=== PATIENT | male | born 1965 | race Caucasian/White ===

== ENCOUNTER 2020-10-12 19:36 | Emergency (ER) | payer OTHER ==
[~2020-10-12] VITALS: Ht 182.9 cm; Wt 102.1 kg
--- NOTE | 2020-10-12 20:33 | ED Upper Extremity ---
General Chief Complaint: Laceration Stated Complaint: L ARM LAC Nursing Triage Note: PT AMBULATE TO ROOM 02 WITH C/O LAC TO OUTSIDE LEFT WRIST. PT STATES HE WAS CUTTING A PIECE OF WOOD AND CUT ARM. Source: patient, other Exam Limitations: no limitations History of Present Illness Date Seen by Provider: Oct 12, 2020 Time Seen by Provider: 20:19 Initial Comments Patient to the ER by private conveyance from home with chief complaint that wi thin the last few minutes he was using a trim saw and cut the top of his left hand. He is right-hand dominant. No loss of range of motion or feeling. He put direct pressure on it stop the bleeding on his way and. He has had a tetanus vaccine in the last 5 years. Allergies and Home Medications Allergies Coded Allergies: Penicillins (Verified Allergy, Unknown, 10/12/20) Patient Home Medication List Home Medication List Reviewed: Yes Review of Systems Constitutional: No chills, No diaphoresis EENTM: No ear discharge, No ear pain Respiratory: No cough, No short of breath Cardiovascular: No chest pain, No Hx of Intervention, No palpitations Gastrointestinal: No abdominal pain, No nausea, No vomiting Genitourinary: No discharge, No dysuria Musculoskeletal: No back pain, No joint pain All Other Systems Reviewed Negative Unless Noted: Yes Past Dkvpydk-Xfzcuk-Asajrj Hx Patient Social History Tobacco Use?: No Substance use?: No Substance frequency: Couple times a week Alcohol Use?: Yes Alcohol type: Beer Alcohol Frequency: Couple times a week Pt feels they are or have been: No Physical Exam Vital Signs Vital Signs - First Documented 10/12/20 19:44 Temp 36.6 Pulse 70 Resp 19 B/P (MAP) 117/73 (88) O2 Delivery Room Air Capillary Refill : Less Than 3 Seconds Height, Weight, BMI Height: '" Weight: lbs. oz. kg; 30.00 BMI Method: General Appearance: WD/WN, mild distress HEENT: PERRL/EOMI, normal ENT inspection, pharynx normal Neck: full range of motion, normal inspection Cardiovascular: normal peripheral pulses, regular rate, rhythm Respiratory: lungs clear, normal breath sounds, no respiratory distress, no accessory muscle use Shoulder: normal inspection, non-tender, no evidence of injury, normal ROM Elbow/Forearm: normal inspection, non-tender, no evidence of injury, normal ROM, Left Hand: laceration (5 cm linear ragged laceration on the dorsum of the left hand or third fourth and fifth metacarpals) Neurologic/Tendon: normal sensation, normal motor functions, normal tendon functions, responds to pain, no evidence tendon injury Neurologic/Psychiatric: no motor/sensory deficits, alert, normal mood/affect, oriented x 3 Skin: normal color, warm/dry Procedures/Interventions Wound Location: Upper Extremities Other Wound Location Dorsal left hand Wound Length (cm): 5 Wound's Depth, Shape: linear (Ragged), sub Q Wound Explored: no foreign body removed Irrigated w/ Saline (ccs): 200 Betadine Prep?: Yes (Chlorhexidine and alcohol) Anesthesia: 1% Lidocaine Volume Anesthetic (ccs): 5 Suture: Prolene Suture Size: 4-0 Number of Sutures: 7 Layer Closure?: 1 Sterile Dressing Applied?: Yes Progress Skin edges were reapproximated with 7 simple interrupted sutures. Progress/Results/Core Measures Results/Orders My Orders Orders - GERALD TRIANA Hand, Left, 3 Views (10/12/20 20:32) Lidocaine 1% Inj 20 Ml (Xylocaine 1% Inj (10/12/20 20:45) Vital Signs/I&O 10/12/20 19:44 Temp 36.6 Pulse 70 Resp 19 B/P (MAP) 117/73 (88) O2 Delivery Room Air Blood Pressure Mean: 88 Diagnostic Imaging Diagonstic Imaging: Xray Plain Films/CT/US/NM/MRI: hand (Left 3 view) Comments NAME: [facility] REC#: [id number] PT STATUS: REG ER : 1965 PHYSICIAN: GERALD TRIANA MD ADMIT DATE: 10/12/20/ER Signed Date of Exam:10/12/20 HAND, LEFT, 3 VIEWS CLINICAL HISTORY: Left hand pain. COMPARISON: None. TECHNIQUE: 3 views of the left hand. FINDINGS: There is no acute fracture or dislocation of the left hand. Likely old avulsion fracture seen at the left ulnar styloid. Alignment is anatomic. The imaged joint spaces are preserved. Soft tissue laceration is seen along the ulnar aspect of the left wrist. IMPRESSION: 1. No acute fracture or dislocation in the left hand. 2. Likely old avulsion injury of the left ulnar styloid. 3. Soft tissue laceration along the ulnar aspect of the left wrist. Dictated by: Dictated on workstation # [id number] Dict: 10/12/202101 Trans: 10/12/202107 [facility] [id number] Interpreted by: LAUREANO HOOD DO Electronically signed by: LAUREANO HOOD DO 10/12/202107 Reviewed: Reviewed by Me Departure Impression Primary Impression: Laceration of hand Qualified Codes: S61.412A - Laceration without foreign body of left hand, initial encounter Disposition: HOME, SELF-CARE Condition: Stable Departure-Patient Inst. Decision time for Depature: 21:30 Referrals: DEBBIE SOTOMAYOR,LOCAL PHYSICIAN (PCP) Primary Care Physician Patient Instructions: Laceration Repair With Stitches ED Add. Discharge Instructions: Keep the wound clean with regular soap and water only. If you have swelling elevate the hand above the level your heart and use some compression dressings. Tylenol and ibuprofen as necessary for pain. Sutures need to come out in 10 to 14 days. You may return to the ER to have this done or your primary care doctor. Keflex 3 times a day for the next week to prevent infection. It is okay to wash the hand or shower but do not submerse the hand under water until the sutures are removed. All discharge instructions reviewed with patient and/or family. Voiced understanding. Scripts Cephalexin (Cephalexin) 500 Mg Tablet 500 MG PO TID for 7 Days, #21 TAB 0 Refills Prov: GERALD TRIANA 10/12/20 Work/School Note: Work Release Form Date Seen in the Emergency Department: Oct 12, 2020 Return to Work: Oct 26, 2020 Restrictions: Need Release from Doctor Other Restrictions Listed Below: Do not submerse hand until sutures are out. Copy Copies To 1: DEBBIE SOTOMAYOR TITUS J Oct 12, 2020 20:33
[2020-10-12] MEDS ORDERED: LIDOCAINE 1% INJ 20 ML 20 ML VIAL INJ ONE (20:45)
--- NOTE | 2020-10-12 21:07 | Diagnostic Imaging Report ---
CLINICAL HISTORY: Left hand pain. COMPARISON: None. TECHNIQUE: 3 views of the left hand. FINDINGS: There is no acute fracture or dislocation of the left hand. Likely old avulsion fracture seen at the left ulnar styloid. Alignment is anatomic. The imaged joint spaces are preserved. Soft tissue laceration is seen along the ulnar aspect of the left wrist. IMPRESSION: 1. No acute fracture or dislocation in the left hand. 2. Likely old avulsion injury of the left ulnar styloid. 3. Soft tissue laceration along the ulnar aspect of the left wrist. Dictated by: Dictated on workstation # [id number]
[2020-10-12] MEDS ORDERED: CEPH500T PO (21:40)
[2020-10-12 21:54] VITALS: BP 120/77
== END 2020-10-12 21:54 | disposition home or self-care (01) ==
LOC: ER 19:39
DX: S61.412A Laceration without foreign body of left hand, initial encounter (principal); W29.3XXA Contact with powered garden and outdoor hand tools and machinery, initial encounter
CPT/HCPCS: 73130